=== PATIENT | male | born 1950 | race Caucasian/White ===

== ENCOUNTER 2019-07-21 21:03 | Emergency (ER) | payer MEDICARE ==
[2019-07-21] MEDS ORDERED: DILTIAZEM DRIP BOLUS FROM BAG 1 MG SOLN IV ONE ×2 (21:06→22:03)
[2019-07-21] MEDS ORDERED: SODIUM CHLORIDE 0.9% 500 ML 500 ML IV STA (21:06)
[2019-07-21] MEDS: ASPIRIN 81 MG PO STA ×2 (21:21→21:23)
[2019-07-21 21:25] LABS: Basophils # (A) 0.1 k/uL (0-0.2); Basophils % (A) 1 %; Eosinophils # (A) 0.2 k/uL (0-0.7); Eosinophils % (A) 2 %; HCT 50.3 % (39.0-53.0); HGB 16.3 gm/dL (13.0-17.5); Lymphocytes # (A) 2.2 k/uL (1.0-4.8); Lymphocytes % (A) 19 %; MCH 32.5 pg (25.0-35.0); MCHC 32.4 g/dL (31.0-37.0); Mean Platelet Volume 7.2; Monocytes # (A) 0.6 k/uL (0-1.0); Monocytes % (A) 5 %; Neutrophils # (A) 8.6 k/uL (1.3-7.7); Neutrophils % (A) 73 %; Platelet Count 228 k/uL (150-450); RBC 5.02 m/uL (4.30-5.90); WBC 11.9 k/uL (3.8-10.6)
[2019-07-21] MEDS ORDERED: DILTIAZEM 125 MG in SODIUM CHLORIDE 0.9% 100 ML IV SCH (21:30)
--- NOTE | 2019-07-21 21:55 | XR ---
EXAMINATION TYPE: XR chest 1V portable DATE OF EXAM: 07/21/2019 COMPARISON: NONE HISTORY: Short of breath. Chest pain TECHNIQUE: Single frontal view of the chest is obtained. FINDINGS: Heart is enlarged. There is pulmonary mild interstitial edema. There is slight blunting of the costophrenic angles. There are chest leads. IMPRESSION: Pulmonary interstitial edema could be congestive heart failure. Mild cardiomegaly.
[2019-07-21 22:00] LABS: Calcium 9.3 mg/dL (8.4-10.2); Magnesium 1.8 mg/dL (1.6-2.3); Potassium 4.3 mmol/L (3.5-5.1); Total Protein 7.2 g/dL (6.3-8.2)
--- NOTE | 2019-07-21 22:00 | ED ---
SOB HPI - General Chief Complaint: Shortness of Breath Stated Complaint: Chest Pain Time Seen by Provider: 07/21/19 21:05 Source: patient Mode of arrival: ambulatory Limitations: no limitations - History of Present Illness Initial Comments: This patient is 69-year-old man who presents to be a value for dyspnea. He states he was watching television approximately 2 hours ago and became short of breath. When the symptoms did not improve after lying down he phoned EMS and they brought him here to be evaluated. EMS noted presence of atrial fibrillatio n on their monitor. Patient denies any history of this or cardiac disease. The patient on review of systems does smoke approximate 5 cigars per day. No fever or chills. No cough. No chest pain or palpitations noted. No change in urination or bowel movements. No leg pain or swelling. MD Complaint: shortness of breath Onset/Timin -: hour(s) Severity: moderate Severity scale (1-10): 0 Consistency: constant Improves With: nothing Worsens With: nothing Associated Symptoms: denies other symptoms - Related Data Previous Rx's Medication Instructions Recorded Apixaban [Eliquis] 5 mg PO BID #40 tab 07/21/19 Diltiazem Cd [Cardizem Cd] 120 mg PO Q24HR #20 cap 07/21/19 Allergies Allergy/AdvReac Type Severity Reaction Status Date / Time No Known Allergies Allergy Verified 07/21/19 23:14 Review of Systems ROS Statement: Those systems with pertinent positive or pertinent negative responses have been documented in the HPI. ROS Other: All systems not noted in ROS Statement are negative. Constitutional: Denies: fever, chills Respiratory: Reports: dyspnea. Denies: cough, wheezes, hemoptysis Cardiovascular: Denies: chest pain, palpitations, orthopnea, edema, syncope Gastrointestinal: Denies: abdominal pain, vomiting, diarrhea, melena, hematochezia Genitourinary: Denies: dysuria, hematuria Musculoskeletal: Denies: back pain Skin: Denies: rash Neurological: Denies: headache, weakness, numbness Psychiatric: Denies: anxiety Past Medical History Past Medical History: No Reported History History of Any Multi-Drug Resistant Organisms: None Reported Past Surgical History: No Surgical Hx Reported Additional Past Surgical History / Comment(s): exploritory heart cath. Past Psychological History: No Psychological Hx Reported Smoking Status: Current every day smoker Past Alcohol Use History: Rare Past Drug Use History: None Reported General Exam Limitations: no limitations General appearance: alert, in no apparent distress Head exam: Present: atraumatic, normocephalic Eye exam: Present: normal appearance. Absent: scleral icterus, conjunctival injection ENT exam: Present: normal oropharynx Neck exam: Present: normal inspection Respiratory exam: Present: normal lung sounds bilaterally. Absent: respiratory distress, wheezes, rales, rhonchi, stridor, accessory muscle use, decreased breath sounds, prolonged expiratory Cardiovascular Exam: Present: tachycardia, irregular rhythm, normal heart sounds. Absent: systolic murmur, diastolic murmur, rubs, gallop GI/Abdominal exam: Present: soft. Absent: distended, tenderness, guarding, rebound, rigid, mass Extremities exam: Present: normal inspection, normal capillary refill. Absent: pedal edema, calf tenderness Back exam: Present: normal inspection. Absent: CVA tenderness (R), CVA tenderness (L) Neurological exam: Present: alert Skin exam: Present: warm, dry, intact, normal color. Absent: rash Course Vital Signs 07/21/19 07/21/19 07/21/19 21:10 21:14 21:30 Temperature 98.2 F Pulse Rate 134 H 117 H Pulse Rate [ 140 H Beer Cooler ] Respiratory 20 20 Rate Blood Pressure 117/92 117/92 O2 Sat by Pulse 96 89 L 95 Oximetry 07/21/19 07/21/19 07/21/19 22:00 22:30 23:00 Temperature Pulse Rate 97 102 H 105 H Pulse Rate [ Beer Cooler ] Respiratory 12 19 16 Rate Blood Pressure 132/108 116/80 143/89 O2 Sat by Pulse 93 L 92 L 91 L Oximetry Medical Decision Making - Medical Decision Making I did have prolonged discussion with patient regarding admission to be seen by cardiology for the new onset atrial fibrillation. The patient states that he cannot stay as she has a dog at home and he also has to work in the morning. He does state he will follow with cardiology. We discussed the parameters requiring immediate return, including return of any dyspnea, chest pain, diapho resis, nausea vomiting, as well as other symptoms. He understands risk of cardiac event, stroke, and disability. - Lab Data Result diagrams: 07/21/19 21:12 07/21/19 21:12 Lab Results 07/21/19 07/21/19 07/21/19 Range/Units 21:12 21:12 21:12 WBC 11.9 H (3.8-10.6) k/uL RBC 5.02 (4.30-5.90) m/uL Hgb 16.3 (13.0-17.5) gm/dL Hct 50.3 (39.0-53.0) % MCV 100.0 (80.0-100.0) fL MCH 32.5 (25.0-35.0) pg MCHC 32.4 (31.0-37.0) g/dL RDW 13.0 (11.5-15.5) % Plt Count 228 (150-450) k/uL Neutrophils % 73 % Lymphocytes % 19 % Monocytes % 5 % Eosinophils % 2 % Basophils % 1 % Neutrophils # 8.6 H (1.3-7.7) k/uL Lymphocytes # 2.2 (1.0-4.8) k/uL Monocytes # 0.6 (0-1.0) k/uL Eosinophils # 0.2 (0-0.7) k/uL Basophils # 0.1 (0-0.2) k/uL PT 10.2 (9.0-12.0) sec INR 0.9 (<1.2) APTT 20.8 L (22.0-30.0) sec Sodium 139 (137-145) mmol/L Potassium 4.3 (3.5-5.1) mmol/L Chloride 106 (98-107) mmol/L Carbon Dioxide 23 (22-30) mmol/L Anion Gap 10 mmol/L BUN 27 H (9-20) mg/dL Creatinine 1.58 H (0.66-1.25) mg/dL Est GFR (CKD-EPI)AfAm 51 (>60 ml/min/1.73 sqM) Est GFR (CKD-EPI)NonAf 44 (>60 ml/min/1.73 sqM) Glucose 107 H (74-99) mg/dL Calcium 9.3 (8.4-10.2) mg/dL Magnesium 1.8 (1.6-2.3) mg/dL Total Bilirubin 1.0 (0.2-1.3) mg/dL AST 21 (17-59) U/L ALT 18 L (21-72) U/L Alkaline Phosphatase 84 (38-126) U/L Troponin I (0.000-0.034) ng/mL Total Protein 7.2 (6.3-8.2) g/dL Albumin 4.0 (3.5-5.0) g/dL TSH 2.600 (0.465-4.680) mIU/L 07/21/19 Range/Units 21:12 WBC (3.8-10.6) k/uL RBC (4.30-5.90) m/uL Hgb (13.0-17.5) gm/dL Hct (39.0-53.0) % MCV (80.0-100.0) fL MCH (25.0-35.0) pg MCHC (31.0-37.0) g/dL RDW (11.5-15.5) % Plt Count (150-450) k/uL Neutrophils % % Lymphocytes % % Monocytes % % Eosinophils % % Basophils % % Neutrophils # (1.3-7.7) k/uL Lymphocytes # (1.0-4.8) k/uL Monocytes # (0-1.0) k/uL Eosinophils # (0-0.7) k/uL Basophils # (0-0.2) k/uL PT (9.0-12.0) sec INR (<1.2) APTT (22.0-30.0) sec Sodium (137-145) mmol/L Potassium (3.5-5.1) mmol/L Chloride (98-107) mmol/L Carbon Dioxide (22-30) mmol/L Anion Gap mmol/L BUN (9-20) mg/dL Creatinine (0.66-1.25) mg/dL Est GFR (CKD-EPI)AfAm (>60 ml/min/1.73 sqM) Est GFR (CKD-EPI)NonAf (>60 ml/min/1.73 sqM) Glucose (74-99) mg/dL Calcium (8.4-10.2) mg/dL Magnesium (1.6-2.3) mg/dL Total Bilirubin (0.2-1.3) mg/dL AST (17-59) U/L ALT (21-72) U/L Alkaline Phosphatase (38-126) U/L Troponin I <0.012 (0.000-0.034) ng/mL Total Protein (6.3-8.2) g/dL Albumin (3.5-5.0) g/dL TSH (0.465-4.680) mIU/L - EKG Data -: EKG Interpreted by Me EKG shows normal: axis (Normal), intervals (Normal), QRS complexes (Normal), ST- T waves (Normal) Rate: tachycardia (Atrial fibrillation with rate approximately 126 bpm) Disposition Clinical Impression: Atrial fibrillation with rapid ventricular response Disposition: Left Against Medical Advice Condition: Serious Instructions (If sedation given, give patient instructions): A-fib (Atrial Fibrillation) (DC) Prescriptions: Diltiazem Cd [Cardizem Cd] 120 mg PO Q24HR #20 cap Apixaban [Eliquis] 5 mg PO BID #40 tab Is patient prescribed a controlled substance at d/c from ED?: No Referrals: None,Stated [Primary Care Provider] - 1-2 days Leonel Quiroz MD [STAFF PHYSICIAN] - 1-2 days
[2019-07-21 22:03] LABS: INR 0.9 (<1.2); Prothrombin Time 10.2 sec (9.0-12.0)
[2019-07-21 22:08] LABS: Partial Thromboplastin Time 20.8 sec (22.0-30.0)
[2019-07-21] MEDS ORDERED: ENOXAPARIN 80 MG/0.8 ML SYRINGE SQ ONE (22:15)
[2019-07-21] MEDS ORDERED: DILTIAZEM ORAL 30 MG TAB PO STA (22:35)
[2019-07-21 23:39] VITALS: BP 106/72; PULSE 94; RESP 17; TEMP 98
== END 2019-07-21 23:41 | disposition left against medical advice (07) ==
LOC: EC 21:03
DX: I48.91 Unspecified atrial fibrillation (principal); F17.200 Nicotine dependence, unspecified, uncomplicated; Z53.8 Procedure and treatment not carried out for other reasons; Z53.29 Procedure and treatment not carried out because of patient's decision for other reasons; Z95.818 Presence of other cardiac implants and grafts
CPT/HCPCS: 36415; 71045; 80053; 83735; 84443; 84484; 85025; 85610; 85730; 93005; 96365; 96366; 96372; 96375; 99285

== ENCOUNTER → 2019-10-18 | Outpatient (CLI) | payer SELFPAY ==
[2019-10-18 11:10] LABS: HCT 49.2 % (39.0-53.0); HGB 16.2 gm/dL (13.0-17.5); MCH 32.3 pg (25.0-35.0); MCV 97.7 fL (80.0-100.0); Mean Platelet Volume 7.9; Platelet Count 257 k/uL (150-450); RBC 5.03 m/uL (4.30-5.90); RDW 12.6 % (11.5-15.5); WBC 10.8 k/uL (3.8-10.6)
== END | disposition home or self-care (01) ==
LOC: LABPAT 10:51
PROVIDERS: ATTEND Internal Medicine Cardiovascular Disease
DX: Z01.812 Encounter for preprocedural laboratory examination (principal); I34.0 Nonrheumatic mitral (valve) insufficiency
CPT/HCPCS: 36415; 80051; 82565; 84520; 85027

== ENCOUNTER → 2021-12-04 | Outpatient (CLI) | payer MEDICARE ==
[2021-12-04 14:32] LABS: Protein/Creatinine Ratio,Urine 0.102
[2021-12-04 17:39] LABS: Basophils # (A) 0.07 X 10*3/uL (0.00-0.10); Basophils % (A) 0.6 %; Eosinophils # (A) 0.44 X 10*3/uL (0.04-0.35); Eosinophils % (A) 3.7 %; HGB 15.1 g/dL (13.0-17.0); Immature Grans, Automated 0.4 %; MCH 32.1 pg (27.0-32.0); MCHC 32.1 g/dL (32.0-37.0); Mean Platelet Volume 10.2 fL (9.5-12.2); Monocytes # (A) 0.81 X 10*3/uL (0.20-1.00); Monocytes % (A) 6.8 %; NRBC Per 100 WBC 0 /100 WBCS (0.0-0.0); Neutrophils # (A) 6.85 X 10*3/uL (1.80-7.70); Neutrophils % (A) 57.5 %; Platelet Count 256 X 10*3/uL (140-440); RDW 13.1 % (11.5-14.5); WBC 11.92 X 10*3/uL (4.50-10.00)
[2021-12-04 18:21] LABS: % Iron Saturation 16.44 (15.00-50.00); Anion Gap 11.9 mmol/L (10.00-18.00); BUN/Creat Ratio 16.72 Ratio (12.00-20.00); Blood Urea Nitrogen 29.1 mg/dL (9.0-27.0); Carbon Dioxide 21.2 mmol/L (20.0-27.5); Magnesium 2.5 mg/dL (1.5-2.4); Non-African American GFR(CKD) 38.9 (60.0-200.0); Phosphorus 3.2 mg/dL (2.4-5.1); Potassium 4.6 mmol/L (3.5-5.5); Uric Acid 6.2 mg/dL (3.7-8.7)
[2021-12-04 18:39] LABS: Ferritin 49.2 ng/mL (22.0-322.0)
[2021-12-04 18:55] LABS: Appearance,Urine Clear (Clear); Bilirubin,Urine Negative (Negative); Blood,Urine Negative (Negative); Color,Urine Yellow (Yellow); Ketones,Urine Negative (Negative); Nitrite,Urine Negative (Negative); PH, Urine 5.5 (5.0-8.0); Specific Gravity,Urine 1.016 (1.001-1.030); Urobilinogen,Urine 0.2 (0.2,1.0)
== END | disposition home or self-care (01) ==
LOC: LABWHC1 12:30
PROVIDERS: ATTEND Internal Medicine Nephrology
DX: E55.9 Vitamin D deficiency, unspecified (principal); D64.9 Anemia, unspecified; N25.81 Secondary hyperparathyroidism of renal origin; N39.0 Urinary tract infection, site not specified; N18.32 Chronic kidney disease, stage 3b; M10.9 Gout, unspecified; R80.9 Proteinuria, unspecified
CPT/HCPCS: 36415; 80048; 81003; 82040; 82306; 82570; 82728; 83540; 83550; 83735; 83970; 84100; 84156; 84550; 85025

== ENCOUNTER → 2021-12-17 | Outpatient (CLI) | payer MEDICARE ==
--- NOTE | 2021-12-17 15:35 | US ---
EXAMINATION TYPE: US kidneys/renal and bladder DATE OF EXAM: 12/17/2021 COMPARISON: NONE CLINICAL HISTORY: N18.32 Stage 3b chronic kidney disease. Abnormal labs EXAM MEASUREMENTS: Right Kidney: 9.4 x 4.3 x 4.9 cm Left Kidney: 8.9 x 4.3 x 4.4 cm Right Kidney: Appeared wnl Left Kidney: Difficult to visualize due to overlying bowel gas, no evidence of hydro, Bladder: wnl Bilateral Jets seen: Only right jet visualized There is no evidence for hydronephrosis at this point in time. No nephrolithiasis is seen. No mario alberto s are identified. The urinary bladder is not greatly distended. Bilateral ureteral jets are not see n. IMPRESSION: Kidneys lower limits of normal in size. No hydronephrosis noted bilaterally.
== END | disposition home or self-care (01) ==
LOC: RADUSWWP 15:05
PROVIDERS: ATTEND Internal Medicine Nephrology
DX: N18.32 Chronic kidney disease, stage 3b (principal)
CPT/HCPCS: 76770

== ENCOUNTER → 2022-01-06 | Outpatient (CLI) | payer MEDICARE ==
[2022-01-06 13:58] LABS: INR 0.9 (<1.2); Prothrombin Time 10.4 sec (9.0-12.0)
[2022-01-06 13:59] LABS: Partial Thromboplastin Time 25.4 sec (22.0-30.0)
[2022-01-06 18:36] LABS: African American GFR (CKD) 40.8 (60.0-200.0); Albumin 3.9 g/dL (3.8-4.9); Albumin/Globulin Ratio 1.25 (1.60-3.17); Anion Gap 11.1 mmol/L (10.00-18.00); BUN/Creat Ratio 16.83 Ratio (12.00-20.00); Blood Urea Nitrogen 31.8 mg/dL (9.0-27.0); Calcium 8.9 mg/dL (8.7-10.3); Carbon Dioxide 23.4 mmol/L (20.0-27.5); Globulin 3.1 g/dL (1.6-3.3); Non-African American GFR(CKD) 35.2 (60.0-200.0); Potassium 4.8 mmol/L (3.5-5.5); Total Bilirubin 0.6 mg/dL (0.30-1.20)
[2022-01-06 18:40] LABS: HCT 49.5 % (39.6-50.0); HGB 15.7 g/dL (13.0-17.0); MCH 31.5 pg (27.0-32.0); MCHC 31.7 g/dL (32.0-37.0); MCV 99.2 fL (80.0-97.0); Mean Platelet Volume 10.8 fL (9.5-12.2); NRBC Per 100 WBC 0 /100 WBCS (0.0-0.0); Platelet Count 269 X 10*3/uL (140-440); RBC 4.99 X 10*6/uL (4.40-5.60); RDW 13.5 % (11.5-14.5); WBC 10.79 X 10*3/uL (4.50-10.00)
[2022-01-06 20:06] LABS: Appearance,Urine Clear (Clear); Bilirubin,Urine Negative (Negative); Blood,Urine Negative (Negative); Color,Urine Yellow (Yellow); Ketones,Urine Trace mg/dL (Negative); Nitrite,Urine Negative (Negative); PH, Urine 5.5 (5.0-8.0); Specific Gravity,Urine 1.024 (1.001-1.030); Urobilinogen,Urine 0.2 (0.2,1.0)
== END | disposition home or self-care (01) ==
LOC: LABPAT 11:48
PROVIDERS: ATTEND Orthopaedic Surgery
DX: Z01.818 Encounter for other preprocedural examination (principal); I44.4 Left anterior fascicular block; I48.91 Unspecified atrial fibrillation; R94.31 Abnormal electrocardiogram [ECG] [EKG]
CPT/HCPCS: 80053; 81001; 85027; 85610; 85730; 87070; 93005

== ENCOUNTER 2022-01-14 14:12 | Day surgery (SDC) | payer MEDICARE ==
[2022-01-12 16:09] VITALS: BMI 21.7
[~2022-01-14 14:12] MED LIST: ACETAMINOPHEN TAB 500 MG TAB PO PRN; DEXAMETHASONE SOD PHOSPHATE 10 MG/ML 1 ML VIAL IV PRN; DOCUSATE 100 MG CAP PO PRN; FAMOTIDINE 20 MG/2 ML VIAL IVP PRN; HYDROmorphone 0.5 MG/0.5 ML SYRINGE IVP PRN; KETOROLAC 15 MG/ML 1 ML VIAL IVP PRN; LIDOCAINE 1% (10MG/ML) FOR IV START INTRADERMA PRN; ONDANSETRON 4 MG/2 ML VIAL IVP ONE; ONDANSETRON 4 MG/2 ML VIAL IVP PRN; ROPIVACAINE/EPI/CLONIDINE/KET 50 ML SYRINGE MISCELLANE PRN; TRANEXAMIC ACID IN NACL,ISO-OS 1,000 MG in SALINE 1 100ML.BAG IVPB PRN; VANCOMYCIN 1,000 MG in SODIUM CHLORIDE 0.9% 250 ML IVPB PRN; VANCOMYCIN IV PER PHARMACY 1 EACH MISC MISCELLANE PRN; oxyCODONE ER 10 MG TAB.ER.12H PO PRN
[2022-01-14] MEDS: LACTATED RINGERS 1,000 ML IV SCH (15:00)
[2022-01-14 15:39] LABS: INR 0.9 (<1.2); Prothrombin Time 10.2 sec (9.0-12.0)
[2022-01-14] MEDS ORDERED: TRANEXAMIC ACID IN NACL,ISO-OS 1,000 MG in SALINE 1 100ML.BAG IVPB ONE (16:45)
[2022-01-14] MEDS ORDERED: LACTATED RINGERS 1,000 ML IV ONE (18:30)
[2022-01-14] MEDS ORDERED: HYDROcodone/APAP 5-325MG 1 EACH TAB PO PRN (19:16)
[2022-01-14] MEDS ORDERED: ONDANSETRON 4 MG/2 ML VIAL IVP PRN (19:16)
[2022-01-14] MEDS ORDERED: NALOXONE 0.4 MG/ML 1 ML VIAL IV PRN (19:16)
[2022-01-14] MEDS ORDERED: hydrOXYzine pamoate 25 MG CAP PO PRN (19:16)
[2022-01-14] MEDS ORDERED: HYDROmorphone 0.5 MG/0.5 ML SYRINGE IVP PRN ×3 (19:16)
--- NOTE | 2022-01-14 19:20 | P.OP ---
Date of Procedure: 01/14/22 Preoperative Diagnosis: 1. Severe left hip osteoarthritis 2. Chronic renal disease 3. History of tobacco use 4. Coronary artery disease status post stent on Coumadin Postoperative Diagnosis: Same Procedure(s) Performed: Left direct anterior total hip arthroplasty Implants: 1. [place] Trident II 56 mm cup 2. Reyes accolade C size #4 standard offset femoral stem 3. Biolox delta 36 mm, -2.5 mm femoral head Anesthesia: DREAD Surgeon: Shalom Arshad Woodyard Operator #1: Trevin Romano Estimated Blood Loss (ml): 250 IV fluids (ml): 1,200 Pathology: other (Femoral head to pathology) Condition: stable Disposition: PACU Indications for Procedure: I had a long discussion with the patient in the office on the potential risks and complications of an elective total hip replacement through a direct anterior approach. Risks discussed include, but are certainly not limited to, risks from anesthesia, superficial infection requiring local wound care or antibiotics, deep eva-prosthetic joint infection and the treatment required to eradicate infection, intraoperative fracture, postoperative periprosthetic fracture, damage to local blood vessels or nerves particularly the lateral femoral cutaneous nerve, delayed wound healing requiring local wound care or possibly surgical debridement, hip dislocation, leg length discrepancy, soft tissue irritation around the total hip implant such as iliopsoas tendinitis or trochanteric bursitis, wear and osteolysis from the implants, squeaking or audible noises, groin pain, thigh pain, heterotopic ossification, stiffness, aseptic loosening of the implants, dissatisfaction with surgical outcome, need for revision surgery, DVT, PE, swelling of the operative extremity, acute coronary event, stroke, failure to thrive, and possibly loss of life or limb. T he patient understands that while these are the most common complications after an elective hip replacement there are certainly other less common complications possible. They were given ample time to ask questions regarding the potential complications of a hip replacement. Following our discussion the patient provided their verbal and written consent to go forward with an elective total hip replacement. Operative Findings: Severe end-stage left hip osteoarthritis Description of Procedure: The patient was identified in the preoperative holding area and the correct hip was marked with my initials. I reviewed the procedure and consent with the patient. All of their questions were answered. The patient was then brought back into the operating room by anesthesia. While on the [facility] anesthesia was administered by the anesthesia team. Preoperative antibiotics and tranexamic acid were also given. After the patient was under anesthesia I examined their ankles to determine their preoperative leg length discrepancy. The skin over the anterior aspect of the hip was shaved to remove hair over the site of planned incision. Both feet and ankles were padded with webril and boots for the Morrow were applied. The patient was then carefully transferred onto the Morrow table. A perineal post was immediately placed. The arms were placed on arm holders and were well-padded. Both boots were secured to the spars on the Morrow table. The patient was positioned so that the pelvis was centered over the post. Nonsterile drapes were applied. A timeout was performed identifying the correct patient, operative extremity, and procedure. At this point fluoroscopy was brought in to take preoperative images of the pelvis and operative hip. Using the standing AP pelvis from the office as a template, a comparable image was obtained with fluoroscopy. A metallic bar was used to create a bi-ischial line for use as a reference to leg length adjustments during the procedure. Global offset was also measured on both the operative and nonoperative leg. Fluoroscopy was then brought out and a pre-scrub using a chlorhexidine scrub brush was performed. The operative limb was then prepped and draped in the standard sterile fashion. An anterior longitudinal incision was made lateral and distal to the ASIS. The skin and subcutaneous tissues were incised sharply. The underlying tensor fascia was identified and incised in its midportion. The fascia was dissected free from the underlying muscle and the muscle belly was retracted. A blunt tipped cobra retractor was placed over the superior neck under the muscle fibers of the gluteus minimus. The deep enveloping fascia of the tensor was incised. The anterior leash of vessels were then identified and cauterized. The fascia between the rectus and the capsule was then incised and the pre-capsular fat was excised. A second Cobra was placed inferior to the neck. The interval between the rectus and iliocapsularis and the hip capsule was developed and a retractor was placed carefully over the anterior rim of the acetabulum. A T-shaped anterior capsulotomy was performed. The superior capsular leaflet was left in place in the inferior capsular flap was excised. The Cobra retractors were placed intracapsularly. We then made a femoral neck osteotomy according to preoperative and intraoperative templating and confirmed the level of the osteotomy using fluoroscopic imaging. The femoral head was removed, passed off to the back table, and sized. The superior capsular flap was excised. Retractors were placed circumferentially exposing the acetabulum. We then circumferentially debrided the acetabulum free of labrum and osteophytes. The pulvinar was removed to fully visualize the cotyloid fossa. We then sequentially reamed to achieve peripheral fit and excellent bleeding subchondral bone. The socket was thoroughly irrigated. The acetabular component was impacted into the appropriate position using fluoroscopy to guide version, inclination, and depth of insertion taking care to have a comparable image of the AP pelvis to the standing image taken in the office. An excellent press-fit was achieved and final position was confirmed using fluoroscopy. The press fit was augmented with bony cancellus dome screws. The liner was then impacted into the socket. Attention was then turned to the femur. The remnant dorsal lateral capsule was excised. The short external rotators were visible and protected. A bone hook was used to confirm appropriate translation of the trochanter away from the acetabulum. The leg was then extended and adducted and the bone hook was used to elevate the femur for broaching. On inspection of the patient's proximal femur, they appeared to have poor bone quality so I elected to proceed with cemented fixation of the femoral component. A box osteotome and blunt tipped canal sound was then utilized to gain access to the femoral canal. We then sequentially broached the femur in appropriate anteversion until torsional stability was achieved and the implant was felt to have reached the appropriate size to allow trialing. The neck cut was brought flush to the trial broach with a calcar planar. A trial neck and head were then placed onto the broach and the hip was atraumatically reduced under direct visualization. External rotation to 90 was performed to assess stability. Fluoroscopy was brought in. An AP and lateral fluoroscopic image of the proximal femur was obtained to assess position and fill of the trial broach. An AP of the pelvis was then obtained and matched to the preoperative image taken. A bi-ischial bar was then placed and measurements were taken to assess changes in length and offset. The hip was then carefully dislocated, the proximal femur was exposed, and the trial implants were removed. The proximal femur was then prepared for cementing. The canal was thoroughly irrigated with pulsatile lavage to remove blood and marrow contents. A cement restrictor was placed to a depth just distal to the tip of the final implant. Epinephrine-soaked gauze was then packed into the proximal femur. 2 bags of cement were then mixed using a centrifuge and placed into a cement gun. Anesthesia was notified that cementing was about to commence to make sure the patient was appropriately ventilated and hydrated. Once the cement had reached appropriate consistency, the cement gun was used to fill the canal in a retrograde fashion starting at the restrictor. Cement was then pressurized into the canal with a blue tipped operations logistics analyst. The stem was then carefully introduced into the cement taking care to guide the implant into appropriate version. The stem was held in position until the cement had fully set. All extra cement was removed while the cement was hardening. The trunnion was cleansed and the final head was tapped into place to engage the Alexandra taper. The acetabulum was irrigated and visualized to be free of debris. The hip was carefully reduced. Stability was checked clinically with external rotation to 90 and there was no evidence of instability. Final fluoroscopic images were taken. The wound was then thoroughly irrigated and soaked with a dilute Betadine rinse for 3 minutes. 3 L of sterile saline was irrigated through the wound using pulsatile lavage. Local anesthetic cocktail was injected into the soft tissues around the surgical field. A deep drain was placed. The wound was then closed in layers. A sterile dressing was placed over the surgical incision and drain site. The drapes were taken down and the patient was carefully transferred off of the Morrow table. Following removal of the boots the leg lengths felt acceptable. The patient was then taken to recovery room having tolerated the procedure well. Trevin Romano PA-C was required as a skilled glass ribbon machine operator assistant for patient positioning, surgical exposure, retraction, placement of implants, and closure of the surgical wound. PLAN: The patient can weight-bear as tolerated on the operative extremity. 2 doses of postoperative antibiotics. DVT prophylaxis with aspirin 81 mg twice a day based on preoperative risk stratification. Physical therapy for gait training. Discontinue drain postoperative day #1 if output is less than 100 mL per shift.
[2022-01-14] MEDS: SENNOSIDES-DOCUSATE SODIUM 1 EACH TAB PO SCH (21:05)
--- NOTE | 2022-01-14 21:06 | XR ---
EXAMINATION TYPE: XR Hip Complete LT DATE OF EXAM: 01/14/2022 COMPARISON: NONE HISTORY: Hip surgery TECHNIQUE: 6 views FINDINGS: There was 45 seconds fluoroscopy time recorded. 5 images were obtained that show placement of a left hip prosthesis. Components appear in good position. IMPRESSION: No complicating process.
[2022-01-14] MEDS ORDERED: WARFARIN 7.5 MG TAB PO ONE (23:00)
[2022-01-15] MEDS: HYDROcodone/APAP 5-325MG 1 EACH TAB PO PRN ×2 (05:19→18:12)
[2022-01-15] MEDS: LACTATED RINGERS 1,000 ML IV SCH (07:23)
--- NOTE | 2022-01-15 07:31 | FL ---
Fluoroscopy INDICATION: Pain FINDINGS: Fluoroscopy time: 45 seconds. Images obtained: 5. IMPRESSIONS: 1. Documentation of fluoroscopy.
[2022-01-15 09:25] LABS: Prothrombin Time 10.9 sec (9.0-12.0)
--- NOTE | 2022-01-15 09:53 | P.DS ---
Providers Expected date of discharge: 01/15/22 Attending physician: Shalom Arshad Consults: 01/14/22 19:16 Consult Physician Routine Consulting Provider: Tracee Davenport Consult Reason/Comments: medical management Do you want consulting provider notified?: Yes Primary care physician: Rebecca Meneses [place] [facility] Course: This is a 72-year-old male who has been followed in our office by Dr. Arshad for continued complaints of left hip pain due to left hip osteoarthritis. Treatment options were discussed, and patient elected to undergo a left total hip arthroplasty. Patient was seen pre-operatively by Dr. Fernandez, Dr. Jurado, and nephrology and cleared for surgery. Patient underwent a direct anterior left total hip arthroplasty on 01/14/22. The procedure was performed without complication or sequelae. The patient is doing fairly well postoperatively. Vital signs and labs are stable on postoperative day #1. Patient was examined bedside today. Patient states he is overall doing very well and the pain in his left hip is well-controlled. His hemovac drain was pulled this morning. He has been ambulating with a walker with minimal assistance. He has worked with physical therapy this morning. Patient is tolerating his breakfast well. He is voiding with issues. He has not had a bowel movement yet, he denies abdominal pain. Patient is comfortable being discharged home today. Patient denies chest pain, shortness of breath, nausea, vomiting, fevers, chills. On examination, the patient is sitting up in the bedside chair in no apparent distress. He is alert and orientated 3. On inspection of the left hip, there is a clean, dry, intact Prevena wound vac in place. Patient has good strength and ROM of the left ankle and toes. Motor and sensory function is intact of the left lower extremity. The dorsalis pedis pulse is easily palpable, the left lower extremity is warm and well perfused with brisk capillary refill. Calf is soft and non-tender to palpation. Patient is discharged home with home health in good condition, pending medical clearance. Patient will follow-up with Dr. Arshad in the office on Wednesday01/20/22 for wound vac removal. Please see med rec for accurate list of discharge medication. Plan - Discharge Summary Discharge Rx Participant: No New Discharge Prescriptions: New Docusate [Colace] 100 mg PO BID #60 capsule Doxycycline Monohydrate 100 mg PO BID 14 Days #28 cap HYDROcodone/APAP 5-325MG [[place] 5-325] 1 tab PO Q6HR PRN 3 Days #30 tab PRN Reason: Pain Omeprazole 40 mg PO DAILY 30 Days #30 cap No Action Metoprolol Succinate (ER) [Toprol Xl] 50 mg PO QAM Warfarin [Coumadin] 5 mg PO DAILY lisinopriL [Zestril] 5 mg PO QAM Furosemide [Lasix] 20 mg PO QAM Discharge Medication List Furosemide [Lasix] 20 mg PO QAM 11/13/21 [History] Metoprolol Succinate (ER) [Toprol Xl] 50 mg PO QAM 11/13/21 [History] Warfarin [Coumadin] 5 mg PO DAILY 11/13/21 [History] lisinopriL [Zestril] 5 mg PO QAM 11/13/21 [History] Docusate [Colace] 100 mg PO BID #60 capsule 01/15/22 [Rx] Doxycycline Monohydrate 100 mg PO BID 14 Days #28 cap 01/15/22 [Rx] HYDROcodone/APAP 5-325MG [[place] 5-325] 1 tab PO Q6HR PRN 3 Days #30 tab 01/15/22 [Rx] Omeprazole 40 mg PO DAILY 30 Days #30 cap 01/15/22 [Rx] Follow up Appointment(s)/Referral(s): [facility], [NON-STAFF] - As Needed ([facility] will call you to schedule your in home physical therapy visits. ) Shalom Arshad MD [Medical Doctor] - 01/20/22 Activity/Diet/Wound Care/Special Instructions: Weight bear as tolerated on operative leg with a walker. Keep Prevena wound vac in place until follow-up appointment in the office. Take antibiotic as prescribed. Take pain medications as needed. Resume Coumadin for blood clot prevention. Follow-up at [facility] on Wednesday01/20/22. Call the office with any questions or concerns, Discharge Disposition: HOME WITH HOME HEALTH SERVICES
[2022-01-15 10:49] LABS: Basophils # (A) 0.03 X 10*3/uL (0.00-0.10); Basophils % (A) 0.2 %; Eosinophils # (A) 0 X 10*3/uL (0.04-0.35); Eosinophils % (A) 0 %; HCT 43.7 % (39.6-50.0); HGB 14.3 g/dL (13.0-17.0); Immature Grans, Automated 0.6 %; Lymphocytes # (A) 2.07 X 10*3/uL (0.90-5.00); Lymphocytes % (A) 11.7 %; MCH 31.6 pg (27.0-32.0); MCHC 32.7 g/dL (32.0-37.0); MCV 96.7 fL (80.0-97.0); Mean Platelet Volume 10.6 fL (9.5-12.2); Monocytes # (A) 0.86 X 10*3/uL (0.20-1.00); Monocytes % (A) 4.9 %; NRBC Per 100 WBC 0 /100 WBCS (0.0-0.0); Neutrophils # (A) 14.64 X 10*3/uL (1.80-7.70); Neutrophils % (A) 82.6 %; Platelet Count 257 X 10*3/uL (140-440); RBC 4.52 X 10*6/uL (4.40-5.60); RDW 13.5 % (11.5-14.5)
[2022-01-15] MEDS ORDERED: SODIUM CHLORIDE 0.9% 1,000 ML IV ONE (11:28)
--- NOTE | 2022-01-15 14:44 | P.CONS ---
History of Present Illness - History of Present Illness This is a pleasant 72 years old male with past medical history of atrial fib rillation on Coumadin, he follows up with Dr. Jurado who manages his INR as he tells me. History of hypertension on multiple medications including lisinopril, metoprolol and Lasix. And history of severe osteoarthritis. Patient was admitted for severe left hip osteoarthritis and he status post total left hip arthroplasty. Today is postop day #1. Patient is awake and alert, he denies dizziness, no chest pain no dyspnea, no diarrhea or vomiting, no abdominal pain, no urinary complaints, no dysuria or urgency, no headache or dizziness or weakness or numbness. No blurred vision. Patient blood pressure was on the low side 97/62 with heart rate 105, While supine. Blood pressure dropped to 84/56 with heart rate 101 on sitting and 81/51 with heart rate 93 on standing Patient denies postural dizziness and he is able to walk. Workup is at bedside. Also patient is currently every day smoker approximately 3 cigarettes per day Labs from today show 1 WBC 17.7, hemoglobin 14.3, platelet count is normal. INR is 1.0. BNP from 01/06 showing sodium 140, potassium 4.8, creatinine 1.9 which is close to his baseline of 1.8-2.0. No BMP was done from today. I talked to the patient about the subtherapeutic INR I explained for him extensively the mechanism and the risk of thrombosis, stroke with atrial fibrillation and the need for blood thinner Coumadin, she verbalized understanding. I also offered to give him bridging with Lovenox but he declined for risk of bleeding which seems reasonable as there is high-risk for bleeding was given. Patient preferred to continue with Coumadin and core check his INR with Dr. Jurado on Wednesday. Patient also does not want me to talk to his family members The baby followed for help with postop care Review of Systems CONSTITUTIONAL: No fever, no malaise, no fatigue. HEENT: No recent visual problems or hearing problems. Denied any sore throat. CARDIOVASCULAR: No orthopnea, PND, no palpitations, no syncope. PULMONARY: No shortness of breath, no cough, no hemoptysis. GASTROINTESTINAL: No diarrhea, no nausea, no vomiting, no abdominal pain. Normoactive bowel sounds. NEUROLOGICAL: No headaches, no weakness, no numbness. HEMATOLOGICAL: Denies any bleeding or petechiae. GENITOURINARY: Denies any burning micturition, frequency, or urgency. MUSCULOSKELETAL/RHEUMATOLOGICAL: Denies any joint pain, swelling, or any muscle pain. ENDOCRINE: Denies any polyuria or polydipsia. Past Medical History Past Medical History: Atrial Fibrillation, Hypertension, Osteoarthritis (OA) History of Any Multi-Drug Resistant Organisms: None Reported Past Surgical History: Heart Catheterization, Hernia Repair Additional Past Surgical History / Comment(s): exploritory heart cath. Past Anesthesia/Blood Transfusion Reactions: No Reported Reaction Past Psychological History: No Psychological Hx Reported Smoking Status: Current every day smoker Past Alcohol Use History: Rare Additional Past Alcohol Use History / Comment(s): started smoking at age age 19 or 21. smokes now approx 3 cigarettes per day Past Drug Use History: None Reported - Past Family History Father Family Medical History: No Reported History Medications and Allergies Home Medications Medication Instructions Recorded Confirmed Type Furosemide [Lasix] 20 mg PO QAM 11/13/21 01/12/22 History Metoprolol Succinate (ER) [Toprol 50 mg PO QAM 11/13/21 01/12/22 History Xl] Warfarin [Coumadin] 5 mg PO DAILY 11/13/21 01/12/22 History lisinopriL [Zestril] 5 mg PO QAM 11/13/21 01/12/22 History Docusate [Colace] 100 mg PO BID #60 capsule 01/15/22 Rx Doxycycline Monohydrate 100 mg PO BID 14 Days #28 cap 01/15/22 Rx HYDROcodone/APAP 5-325MG [[place] 1 tab PO Q6HR PRN 3 Days #30 tab 01/15/22 Rx 5-325] Omeprazole 40 mg PO DAILY 30 Days #30 cap 01/15/22 Rx Allergies Allergy/AdvReac Type Severity Reaction Status Date / Time No Known Allergies Allergy Verified 01/14/22 14:30 Physical Exam Vitals: Vital Signs Temp Pulse Resp BP Pulse Ox 01/15/22 11:06 93 81/51 01/15/22 11:05 105 H 97/62 01/15/22 07:47 97.8 F 96 16 91/59 95 01/15/22 02:00 98.1 F 90 16 95/67 97 01/14/22 23:05 71 103/72 97 01/14/22 22:50 92 111/76 98 01/14/22 22:35 78 112/79 98 01/14/22 22:20 89 101/74 99 01/14/22 22:05 89 102/72 98 01/14/22 21:50 86 95/67 98 01/14/22 21:35 78 101/69 99 01/14/22 21:20 96 95/65 98 01/14/22 21:05 104 H 101/72 96 01/14/22 20:50 69 97/69 93 L 01/14/22 20:35 97.6 F 90 98/68 93 L 01/14/22 20:31 88 18 98/68 93 L 01/14/22 19:55 94 18 100/70 94 L 01/14/22 19:40 89 104/60 95 01/14/22 19:25 83 18 104/68 97 01/14/22 19:10 97 F L 82 16 114/72 01/14/22 14:36 97.9 F 54 L 20 90/61 98 Intake and Output 01/14/22 01/15/22 01/15/22 22:59 06:59 14:59 Intake Total 1650 Output Total 300 595 Balance 1350 -595 Intake: IV 1450 Oral 200 Output: Drainage 140 Left Hip 140 Urine 455 Straight 375 Estimated Blood Loss 300 Other: Voiding Method Toilet Toilet # Voids 1 Weight 67.9 kg GENERAL: The patient is alert and oriented x3, not in any acute distress. Well developed, well nourished. HEENT: Pupils are round and equally reacting to light. EOMI. No scleral icterus. No conjunctival pallor. Normocephalic, atraumatic. No pharyngeal erythema. No thyromegaly. CARDIOVASCULAR: S1 and S2 present. No murmurs, rubs, or gallops. PULMONARY: Chest is clear to auscultation, no wheezing or crackles. ABDOMEN: Soft, nontender, nondistended, normoactive bowel sounds. No palpable organomegaly. MUSCULOSKELETAL: No joint swelling or deformity. EXTREMITIES: No cyanosis, clubbing, or pedal edema. Left hip wound with a dressing in place, rest of exam is deferred to surgery team NEUROLOGICAL: Gross neurological examination did not reveal any focal deficits. SKIN: No rashes. No petechiae Results CBC & Chem 7: 01/15/22 06:50 Labs: Abnormal Lab Results - Last 24 Hours (Table) 01/15/22 Range/Units 06:50 WBC 17.70 H (4.50-10.00) X 10*3/uL Immature Gran # 0.10 H (0.00-0.04) X 10*3/uL Neutrophils # 14.64 H (1.80-7.70) X 10*3/uL Eosinophils # 0 L (0.04-0.35) X 10*3/uL Assessment and Plan Assessment: Postoperative Hypotension and postural hypotension Severe left hip osteoarthritis status post total left hip arthroplasty. Postop day #1. Chronic atrial fibrillation on Coumadin with subtherapeutic INR Hypertension, currently patient hypotensive Chronic kidney disease, stage III nicotine dependence Leukocytosis, most likely reactive with no evidence of infection. Plan: This is a pleasant 72 male status post total left hip arthroplasty, with borderline blood pressure and postural hypertension We'll give a bolus of normal saline 1 L. Keep holding his blood pressure medication. Follow-up with PCP and director of product design Dr. Jurado to check blood pressure within a week and Actos blood pressure medication accordingly Coumadin is resumed and we recommend to keep monitoring INR with a goal INR is 2-3. When discharge patient will need to check his INR with his PCP Dr. Garcia and director of product design Dr. Jurado in 2-3 days, patient informed and he agrees to go check his INR on Wednesday. Also patient will be sent with home health care and his INR can be checked visiting nurse and staff relayed to his PCP. postop pain and DVT prophylaxis per surgery primary team Labs and medication were reviewed.. Continue same treatment. Continue with symptomatic treatment. Resume home medication. Monitor lytes and vitals. DVT and GI prophylaxis. Further recommendations depends on the clinical course of the patient physical therapist recommended home health care we recommended for the patient to check his blood tests today including crea tinine given his low blood pressure and history of chronic kidney disease, patient declined. Also I recommended that the [facility] to monitor his vital signs blood pressure for another 24 hours also he is declined, patient adamant to go home today. Risks and benefits are explained for him we recommend patient follow up with Dr. Garcia in one week and Dr. Jurado in one week and patient to check his INR with Dr. Jurado and Dr. Garcia in this coming Wednesday or Wednesday WITH home health care. Patient was instructed with the same We recommend patient to follow up with software publisher Dr. Sparks in 2 weeks and patient was instructed with the same This was discussed with and NEELIMA Zhong from orthopedic team Thank you for consulting us, please feel free to contact us for any further question or clarification
[2022-01-15] MEDS ORDERED: WARFARIN 3 MG TAB PO SCH (18:00)
[2022-01-15 19:22] LABS: ALT 17 U/L (4-49); AST 42 U/L (17-59); African American GFR (CKD) 24 (>60 ml/min/1.73 sqM); Albumin 3.5 g/dL (3.5-5.0); Albumin/Globulin Ratio 1.2; Alkaline Phosphatase 93 U/L (38-126); Anion Gap 11 mmol/L; Blood Urea Nitrogen 61 mg/dL (9-20); Calcium 8.5 mg/dL (8.4-10.2); Carbon Dioxide 21 mmol/L (22-30); Chloride 103 mmol/L (98-107); Globulin 2.9 g/dL; Glucose 84 mg/dL (74-99); Non-African American GFR(CKD) 21 (>60 ml/min/1.73 sqM); Potassium 5.1 mmol/L (3.5-5.1); Sodium 135 mmol/L (137-145); Total Bilirubin 0.4 mg/dL (0.2-1.3); Total Protein 6.4 g/dL (6.3-8.2)
[2022-01-15] MEDS: SENNOSIDES-DOCUSATE SODIUM 1 EACH TAB PO SCH (21:24)
[2022-01-15] MEDS ORDERED: SODIUM CHLORIDE 0.9% 1,000 ML IV SCH (22:45)
[2022-01-16 01:37] VITALS: RESP 16; TEMP 97.5
[2022-01-16] MEDS: HYDROcodone/APAP 5-325MG 1 EACH TAB PO PRN ×2 (03:15→09:45)
[2022-01-16] MEDS: LACTATED RINGERS 1,000 ML IV SCH (06:53)
[2022-01-16 08:06] VITALS: BP 96/59; PULSE 80
[2022-01-16 08:16] LABS: INR 1.6 (<1.2)
--- NOTE | 2022-01-16 10:39 | P.NPCON ---
History of Present Illness - Reason for Consult acute renal failure, chronic renal failure - History of Present Illness Reason for consultation: Acute kidney injury on chronic kidney disease History of present illness: Patient is a 72-year-old male seen in renal consultation for acute kidney injury on chronic kidney disease. Patient has chronic kidney disease stage IIIB with baseline creatinine near 1.7 secondary to nephrosclerosis. Patient underwent left total hip arthroplasty on 01/14/2022. Patient did become hypotensive with blood pressure in the systolic 80s to 90s as admission. He did receive 1 L bolus of normal saline yesterday and is currently maintained on normal saline at 75 mL an hour. He was also noted. Urinary retention and required straight catheterization twice. He is refusing Johnson catheter. He denies history of coronary disease. No history of diabetes. No vomiting or diarrhea. Oral intake is good. He has been voiding. Denies any hematuria or dysuria. Diuretics are held. Denies chest pain or shortness of breath. No fever or chills. He has been ambulating. Denies any dizziness or falls. Blood pressure 96/59 this morning. Vital signs are stable. General: Awake and alert. No acute distress. HEENT: Head exam is unremarkable. LUNGS: Breath sounds decreased. HEART: Rate and Rhythm are regular. ABDOMEN: Soft, no distention. EXTREMITITES: No edema. Past Medical History Past Medical History: Atrial Fibrillation, Hypertension, Osteoarthritis (OA) History of Any Multi-Drug Resistant Organisms: None Reported Past Surgical History: Heart Catheterization, Hernia Repair Additional Past Surgical History / Comment(s): exploritory heart cath. Past Anesthesia/Blood Transfusion Reactions: No Reported Reaction Past Psychological History: No Psychological Hx Reported Smoking Status: Current every day smoker Past Alcohol Use History: Rare Additional Past Alcohol Use History / Comment(s): started smoking at age age 19 or 21. smokes now approx 3 cigarettes per day Past Drug Use History: None Reported - Past Family History Father Family Medical History: No Reported History Medications and Allergies Home Medications Medication Instructions Recorded Confirmed Type Furosemide [Lasix] 20 mg PO QAM 11/13/21 01/12/22 History Metoprolol Succinate (ER) [Toprol 50 mg PO QAM 11/13/21 01/12/22 History Xl] Warfarin [Coumadin] 5 mg PO DAILY 11/13/21 01/12/22 History lisinopriL [Zestril] 5 mg PO QAM 11/13/21 01/12/22 History Docusate [Colace] 100 mg PO BID #60 capsule 01/15/22 Rx Doxycycline Monohydrate 100 mg PO BID 14 Days #28 cap 01/15/22 Rx HYDROcodone/APAP 5-325MG [[place] 1 tab PO Q6HR PRN 3 Days #30 tab 01/15/22 Rx 5-325] Omeprazole 40 mg PO DAILY 30 Days #30 cap 01/15/22 Rx Allergies Allergy/AdvReac Type Severity Reaction Status Date / Time No Known Allergies Allergy Verified 01/14/22 14:30 Physical Exam Vitals: Vital Signs Temp Pulse Resp BP BP Pulse Ox 01/16/22 08:00 97.5 F L 80 16 96/59 01/16/22 07:00 16 01/16/22 01:34 97.5 F L 96 16 109/74 94 L 01/15/22 22:23 97.6 F 99 15 102/66 96 01/15/22 19:29 110 H 15 01/15/22 19:27 97.9 F 110 H 15 96/67 96 01/15/22 17:06 95/60 01/15/22 11:06 93 81/51 01/15/22 11:05 105 H 97/62 Intake and Output 01/15/22 01/16/22 01/16/22 22:59 06:59 14:59 Intake Total 675 296 Output Total 500 Balance 675 -204 Intake: Intake, IV Titration 375 Amount Sodium Chloride 0.9% 1, 375 000 ml @ 75 mls/hr IV . [id number] [facility] Rx#:[id number] Oral 300 296 Output: Urine 500 Straight 500 Other: Voiding Method Toilet Toilet # Voids 3 5 # Bowel Movements 0 Results - Lab Results Most recent lab results Calcium 8.5 mg/dL (8.4-10.2) 01/15/22 18:32 01/15/22 06:50 01/15/22 18:32 Assessment and Plan Plan: Assessment: 1. Acute kidney injury secondary to ATN secondary to hypotension and urinary retention. Creatinine was 2.91 on admission yesterday and left from today are pending. 2. Chronic kidney disease stage IIIB secondary to nephrosclerosis with baseline creatinine near 1.9. 3. Urinary retention. Status post recatheterization times twice. Refusing Johnson catheter. 4. Status post left total hip arthroplasty on 01/14/2022. 5. History of A. fib. 6. Hypotension. Better. Plan: Maintain IV fluids. Check cortisol level. Add midodrine. Hold for systolic blood pressure greater than 110. Add Flomax. Discussed with the patient the risk of worsening renal failure and infection if has persistent urinary retention. He continues to refuse Johnson catheter placement. Follow-up morning labs. Thank you for the consultation. I will continue to follow the patient with you during his hospital stay.
[2022-01-16] MEDS ORDERED: TAMSULOSIN 0.4 MG CAP.ER.24H PO SCH (10:45)
[2022-01-16 11:11] LABS: African American GFR (CKD) 31.9 (60.0-200.0); Albumin 3.4 g/dL (3.8-4.9); Albumin/Globulin Ratio 1.31 (1.60-3.17); Anion Gap 11.9 mmol/L (10.00-18.00); BUN/Creat Ratio 21.17 Ratio (12.00-20.00); Blood Urea Nitrogen 48.7 mg/dL (9.0-27.0); Calcium 8.5 mg/dL (8.7-10.3); Carbon Dioxide 20.1 mmol/L (20.0-27.5); Globulin 2.6 g/dL (1.6-3.3); Non-African American GFR(CKD) 27.5 (60.0-200.0); Potassium 4.4 mmol/L (3.5-5.5); Total Bilirubin 0.5 mg/dL (0.30-1.20)
[2022-01-16] MEDS ORDERED: MIDODRINE 5 MG TAB PO SCH (12:30)
[2022-01-16] MEDS ORDERED: WARFARIN 5 MG TAB PO SCH (18:00)
== END 2022-01-16 10:26 | disposition left against medical advice (07) ==
LOC: OR 14:12 → 4SSUR 19:09 → OR 01-16 10:26
PROVIDERS: ATTEND Orthopaedic Surgery
DX: M16.12 Unilateral primary osteoarthritis, left hip (principal); D72.829 Elevated white blood cell count, unspecified; F17.210 Nicotine dependence, cigarettes, uncomplicated; I12.9 Hypertensive chronic kidney disease with stage 1 through stage 4 chronic kidney disease, or unspecified chronic kidney disease; I25.10 Atherosclerotic heart disease of native coronary artery without angina pectoris; I48.20 Chronic atrial fibrillation, unspecified; I95.1 Orthostatic hypotension; I95.81 Postprocedural hypotension; N17.0 Acute kidney failure with tubular necrosis; N18.32 Chronic kidney disease, stage 3b; Z79.01 Long term (current) use of anticoagulants; Z79.899 Other long term (current) drug therapy; Z95.5 Presence of coronary angioplasty implant and graft
CPT/HCPCS: 27130; 97161; 86900; 86901; 80053; 85025; 85610 ×2; 86850; 73502; C1776; C1713; J3370; J1100; J0690 ×2; J2405; J1170; 82533; 88300

== ENCOUNTER 2023-10-06 12:18 | Emergency (ER) | payer MEDICARE ==
[2023-10-06 12:46] VITALS: RESP 18; TEMP 97.6
--- NOTE | 2023-10-06 13:02 | ED ---
Lower Extremity Injury HPI - General Chief Complaint: Extremity Injury, Lower Stated Complaint: R Ankle Injury Time Seen by Provider: 10/06/23 12:25 Source: patient, RN notes reviewed Mode of arrival: ambulatory Limitations: no limitations - History of Present Illness Initial Comments: 73-year-old male presents emergency department switching lateral ankle injury. Patient states happened a few days ago in which he fell down some stairs. He states he only has right ankle pain. Patient denies head injury loss conscious. Patient states there is bruising, swelling of his right ankle he states that it hurts to ambulate. - Related Data Home Medications Medication Instructions Recorded Confirmed Furosemide [Lasix] 20 mg PO QAM 11/13/21 01/12/22 Metoprolol Succinate (ER) [Toprol 50 mg PO QAM 11/13/21 01/12/22 Xl] Warfarin [Coumadin] 5 mg PO DAILY 11/13/21 01/12/22 lisinopriL [Zestril] 5 mg PO QAM 11/13/21 01/12/22 Previous Rx's Medication Instructions Recorded Docusate [Colace] 100 mg PO BID #60 capsule 01/15/22 Doxycycline Monohydrate 100 mg PO BID 14 Days #28 cap 01/15/22 HYDROcodone/APAP 5-325MG [[place] 1 tab PO Q6HR PRN 3 Days #30 tab 01/15/22 5-325] Omeprazole 40 mg PO DAILY 30 Days #30 cap 01/15/22 Allergies Allergy/AdvReac Type Severity Reaction Status Date / Time No Known Allergies Allergy Verified 10/06/23 12:38 Review of Systems ROS Statement: Those systems with pertinent positive or pertinent negative responses have been documented in the HPI. ROS Other: All systems not noted in ROS Statement are negative. Past Medical History Past Medical History: Atrial Fibrillation, Hypertension, Osteoarthritis (OA) History of Any Multi-Drug Resistant Organisms: None Reported Past Surgical History: Heart Catheterization, Hernia Repair Additional Past Surgical History / Comment(s): exploritory heart cath. Past Anesthesia/Blood Transfusion Reactions: No Reported Reaction Past Psychological History: No Psychological Hx Reported Smoking Status: Current every day smoker Past Alcohol Use History: Rare Past Drug Use History: None Reported, Marijuana - Past Family History Father Family Medical History: No Reported History General Exam Limitations: no limitations General appearance: alert, in no apparent distress Head exam: Present: atraumatic, normocephalic, normal inspection Eye exam: Present: normal appearance, PERRL, EOMI. Absent: scleral icterus, conjunctival injection, periorbital swelling Respiratory exam: Present: normal lung sounds bilaterally. Absent: respiratory distress, wheezes, rales, rhonchi, stridor Cardiovascular Exam: Present: regular rate, normal rhythm, normal heart sounds. Absent: systolic murmur, diastolic murmur, rubs, gallop, clicks Extremities exam: Present: other (Diffuse ecchymosis and swelling of the right distal tib-fib region, right ankle no foot tenderness neurovascular intact) Course Vital Signs 10/06/23 10/06/23 12:34 14:11 Temperature 97.6 F Pulse Rate 96 55 L Respiratory 18 18 Rate Blood Pressure 131/84 108/75 O2 Sat by Pulse 96 95 Oximetry Procedures - Orthopedic Splinting/Casting Injury #1 Side: right Lower Extremity Injury Location: short leg, ankle Lower Extremity Immobilizer: posterior splint, synthetic pre-padded splint Other Orthopedic Equipment: walker Medical Decision Making - Medical Decision Making Was pt. sent in by a medical professional or institution (, PA, MARINE SPECIALIST, urgent care, hospital, or skilled nursing...) When possible be specific @ -No Did you speak to anyone other than the patient for history (EMS, parent, family, police, friend...)? What history was obtained from this source @ -No Did you review nursing and triage notes (agree or disagree)? Why? @ -I reviewed and agree with nursing and triage notes Were old charts reviewed (outside hosp., previous admission, EMS record, old EKG, old radiological studies, urgent care reports/EKG's, skilled nursing records)? Report findings @ -No old charts were reviewed Differential Diagnosis (chest pain, altered mental status, abdominal pain women, abdominal pain men, vaginal bleeding, weakness, fever, dyspnea, syncope, headache, dizziness, GI bleed, back pain, seizure, CVA, palpatations, mental health, musculoskeletal)? @ -[Ankle fracture, ankle sprain EKG interpreted by me (3pts min.). @ -None X-rays interpreted by me (1pt min.). @ -[X-ray right ankle shows mildly displaced distal fibular fracture CT interpreted by me (1pt min.). @ -[None done U/S interpreted by me (1pt. min.). @ -None done What testing was considered but not performed or refused? (CT, X-rays, U/S, labs)? Why? @ -None What meds were considered but not given or refused? Why? @ -None Did you discuss the management of the patient with other professionals (professionals i.e. Dr., PA, MARINE SPECIALIST, lab, RT, psych nurse, social work professor, verify rep, teacher, chief data officer, counseling case manager)? Give summary @ -No Was smoking cessation discussed for >3mins.? @ -No Was critical care preformed (if so, how long)? @ -No Were there social determinants of health that impacted care today? How? (Homelessness, low income, unemployed, alcoholism, drug addiction, transportation, low edu. Level, literacy, decrease access to med. care, long-term, rehab)? @ -No Was there de-escalation of care discussed even if they declined (Discuss DNR or withdrawal of care, Hospice)? DNR status @ -No What co-morbidities impacted this encounter? (DM, HTN, Smoking, COPD, CAD, Cancer, CVA, ARF, Chemo, Hep., AIDS, mental health diagnosis, sleep apnea, morbid obesity)? @ -None Was patient admitted / discharged? Hospital course, mention meds given and route, prescriptions, significant lab abnormalities, going to OR and other pertinent info. @ -[Discharge patient patient has right ankle fracture was splinted he was given prescription for crutches that he states he has a walker at home. Patient will be discharged to follow-up with orthopedics. Undiagnosed new problem with uncertain prognosis? @ -No Drug Therapy requiring intensive monitoring for toxicity (Heparin, Nitro, Insulin, Cardizem)? @ -No Were any procedures done? @ -Splinting Diagnosis/symptom? @ -[Right ankle fracture Acute, or Chronic, or Acute on Chronic? @ -Acute Uncomplicated (without systemic symptoms) or Complicated (systemic symptoms)? @ -[Uncomplicated Side effects of treatment? @ -[No Exacerbation, Progression, or Severe Exacerbation? @ -No Poses a threat to life or bodily function? How? (Chest pain, [place], [place], pneumonia, PE, COPD, DKA, ARF, appy, cholecystitis, CVA, Diverticulitis, Homicidal, Suicidal, threat to staff... and all critical care pts) @ -No Disposition Clinical Impression: Closed right ankle fracture Disposition: HOME SELF-CARE Condition: Stable Instructions (If sedation given, give patient instructions): Ankle Fracture (ED) Additional Instructions: Please return to the Emergency Department if symptoms worsen or any other concerns. Is patient prescribed a controlled substance at d/c from ED?: No Referrals: Gideon Fernandez MD [Primary Care Provider] - 1-2 days Oskar Singer DO [Doctor of Osteopathic Medicine] - 1-2 days Time of Disposition: 13:18
--- NOTE | 2023-10-06 13:26 | XR ---
EXAMINATION TYPE: XR ankle complete RT DATE OF EXAM: 10/06/2023 COMPARISON: NONE HISTORY: 73-year-old male with pain after fall 3 days ago TECHNIQUE: 3 views FINDINGS: Displaced there is a nondisplaced oblique fracture distal fibula at the level of the ankle joint line. Talar dome is intact. Ankle mortise is otherwise congruent. No additional acute fracture is seen. Circumferential soft tissue swelling especially laterally and anteriorly. Subtalar joint ali gn. Small plantar heel spur. Small corticated ossific density below the lateral malleolus suggests se quela of an old injury. IMPRESSION: Nondisplaced oblique fracture distal fibula. Associated soft tissue swelling.
[2023-10-06 14:18] VITALS: BP 108/75; PULSE 55
== END 2023-10-06 14:12 | disposition home or self-care (01) ==
LOC: EC 12:18
DX: S82.891A Other fracture of right lower leg, initial encounter for closed fracture (principal); I48.91 Unspecified atrial fibrillation; I10 Essential (primary) hypertension; F17.200 Nicotine dependence, unspecified, uncomplicated; F12.90 Cannabis use, unspecified, uncomplicated; Z79.01 Long term (current) use of anticoagulants; Z79.899 Other long term (current) drug therapy; W10.9XXA Fall (on) (from) unspecified stairs and steps, initial encounter
CPT/HCPCS: 29515; 99283